=== PATIENT | male | born 1985 | race Caucasian/White ===

== ENCOUNTER 2020-03-07 01:26 | Emergency (ER) | payer SELFPAY ==
[~2020-03-07] VITALS: Ht 177.8 cm; Wt 91.0 kg
[2020-03-07] MEDS ORDERED: NALOXONE HCL 0.4 MG/ML 1ML VIAL IV PRN (02:15)
[2020-03-07 02:32] LABS: CHLORIDE 106 mEq/L (98-107)
[2020-03-07 02:35] LABS: BASOPHILS % 0.3 % (0.0-2.0); EOSINOPHILS % 1.3 % (0.0-5.0); HEMATOCRIT. 41.1 % (42.0-52.0); HEMOGLOBIN. 14.2 g/dL (14.0-18.0); LYMPHOCYTES % 15.3 % (20.0-50.0); MEAN CORPUSCULAR HEMOGLOBIN 28.4 pg (28.0-32.0); MEAN PLATELET VOLUME 6.9 fl (7.4-10.4); MONOCYTES % 6.4 % (2.0-8.0); NEUTROPHILS % 76.7 % (40.0-76.0); PLATELET 339 x1000/uL (130-400); RED BLOOD CELL COUNT 5.01 mill/uL (4.7-6.1); RED CELL DISTRIBUTION WIDTH 14.1 % (11.6-14.6)
[2020-03-07 02:39] LABS: ETHANOL BLOOD < 10 mg/dL
[2020-03-07] MEDS ORDERED: POTASSIUM CHLORIDE 20MEQ TABLET SR PO ONE (03:15)
[2020-03-07 05:52] VITALS: BP 155/92
== END 2020-03-07 05:53 | disposition home or self-care (01) ==
LOC: ER 01:26
DX: F14.10 Cocaine abuse, uncomplicated (principal); R41.82 Altered mental status, unspecified
CPT/HCPCS: 36415; 80053; 80307; 80320; 80329; 82962; 85025; 93005; 96374; 99284; J2310; G0480